=== PATIENT | male | born 1945 | race Caucasian/White ===

== ENCOUNTER → 2017-08-16 | Day surgery (SDC) | payer OTHER ==
[~2017-08-16] VITALS: Ht 167.6 cm; Wt 83.9 kg
[~2017-08-16] MED LIST: ADULT LOW DOSE81 MG PO; ASPIRIN325 M2 PO; ATORVASTATIN CA80 M1 PO; BENICAR20 M1 PO; BENICAR40 M1 PO; DOCUSATE SODIU100 M3 PO; DOXYCYCLINE HY100 M2 PO; DOXYCYCLINE HYC50 M1 PO; ELIQUIS2.5 M1 PO; GABAPENTIN300 M2 PO; HEPARIN-NS25000 UNIT IV; LOSARTAN POTASS50 M1 PO; LOVASTATIN40 M1 PO; MIRALAX119 GM PO; MORPHINE S10 MG/1 M1 IV; MORPHINE SULFAT15 M3 PO; MS CONTIN15 M3 PO; NITRO-BID1 GM TOP; OXYCODONE HCL10 M2 PO; PERCOCET 10-321 EACH PO; PLAVIX75 M1 PO; SENNA PLUS TAB1 EACH PO; TOPROL XL50 M1 PO; URINOZINC PROS1 EACH
--- NOTE | 2017-08-16 09:54 | Operative Report ---
Operative/Inv Procedure Report Surgery Date: 08/16/17 Name of Procedure: Manipulation under anesthesia a right total knee arthroplasty Pre-Operative Diagnosis: Arthrofibrosis right knee Post-Operative Diagnosis: Same Estimated Blood Loss: none Surgeon/Surveillance Sensor Officer: Jensen Segura MD Anesthesia: moderate sedation IV Fluids: See anesthesia record Implants: None Drains: None Specimens: None Complications: None Condition: Stable Operative Indication: Patient is a 71-year-old male status post right total knee arthroscopy 2 months ago whose been slow to progress with range of motion of his knee and was indicated for the patient under anesthesia. Operative/Procedure Note Note: Once informed consent was obtained the correct was identified patient brought to operative placed on table supine position. After initiation of anesthesia manipulation of the right knee was done by flexing the knee slowly. Is very evident that there was some Lobo scarring and fibrosis. I was able to get the knee to flex 130 without any problem at all in without any complication. The the patient was awakened and taken recovery in stable condition.
== END ==
LOC: STS 02:20
DX: M24.661 Ankylosis, right knee (principal); Z96.651 Presence of right artificial knee joint; I25.10 Atherosclerotic heart disease of native coronary artery without angina pectoris; I25.2 Old myocardial infarction; Z87.891 Personal history of nicotine dependence